=== PATIENT | female | born 1985 ===

== ENCOUNTER 2021-12-07 15:47 | Emergency (ER) | payer OTHER ==
--- NOTE | 2021-12-07 15:57 | EDM.PDOC ---
ED HPI GENERAL MEDICAL PROBLEM - General Stated Complaint: "SOB, CHECK PAIN, BODY PAIN" Time Seen by Provider: 12/07/21 15:57 Source of Information: Reports: Patient History Limitations: Reports: No Limitations - History of Present Illness INITIAL COMMENTS - FREE TEXT/NARRATIVE: HISTORY AND PHYSICAL: History of present illness: Patient is a 33-year-old female who presents to the emergency room with known COVID-19 whom has complaints of shortness of breath, cough, fever, headache, nausea, vomiting and diarrhea for the past 7-10 days. She was diagnosed with COVID-19 on 12/03/21. States her symptoms have not improved and she is concerned she may be dehydrated. She states she has generalized back pain and body aches. Patient denies any change in vision, syncope or near syncope. Denies any chest pain, abdominal pain, constipation or dysuria. Has not noted any blood in urine or stool. No concerns for . Patient has not been eating and drinking appropriately over the past 2 to 3 days. Her significant other whom has the same symptoms is also checked into the emergency room with COVID-19. Review of systems: As per history of present illness and below otherwise all systems reviewed and negative. Past medical history: As per history of present illness and as reviewed below otherwise noncontributory. Surgical history: As per history of present illness and as reviewed below otherwise noncontributory. Social history: See social history for further information Family history: As per history of present illness and as reviewed below otherwise noncontributory. Physical exam: General: Well developed and well nourished 36-year-old female. Alert and orientated x 3. Nontoxic in appearance and in no acute distress. Vital signs are stable and have been reviewed by me. Nursing notes were reviewed. HEENT: Atraumatic, normocephalic, pupils equal and reactive bilaterally, negative for conjunctival pallor or scleral icterus, mucous membranes dry, TMs normal bilaterally, throat clear, neck supple, nontender, trachea midline. No drooling or trismus noted. No meningeal signs. No hot potato voice noted. Lungs: Clear to auscultation bilaterally. No wheezes, rales, or rhonchi. Chest nontender. Normal work of breathing, no accessory muscles used. Dry nonproductive cough noted. Heart: S1S2, regular rate and rhythm without overt murmur, gallops, or rubs. No JVD. No peripheral edema Abdomen: Soft, nondistended, nontender. Normoactive bowel sounds. Negative for masses or costovertebral tenderness. Skin: Intact, warm, dry. No lesions or rashes noted. Hematologic: No petechiae or purpra. Mucosa appropriate color and normal nail bed color and refill. Extremities: Atraumatic, moves all extremities per self without difficulty or deficits, negative for cords or calf pain. Neurovascular unremarkable. Neuro: Awake, alert, oriented. Cranial nerves II through XII unremarkable. Cerebellum unremarkable. Motor and sensory unremarkable throughout. Exam nonfocal. Psychiatric: Mood and affect are appropriate. Normal thought process. Answering questions appropriately. Please note that the patient was seen and evaluated during the 2019 SARS-CoV-2 novel coronavirus pandemic period. Community viral transmission is ongoing at time of this encounter and the emergency department is operating under pandemic response procedures. Medical Decision Making: Patient is a 36-year-old female who presents to the emergency room with complaints of COVID-19 symptoms. Patient is tachycardic with a heart rate in the 110's, I will do basic lab work, chest x-ray and provide with IV fluids and medications. X-ray shows small subpleural ground-glass opacity in the lateral aspect of the mid right lung may be due to COVID pneumonia. Due to patient having symptoms nearly 10 days I am getting give her a Z-Luiz to cover in case this is bacterial with viral. She is feeling improved after the IV fluids and medication. Patient's chemistry does show mild dehydration and derangements. Vital signs are stable. I have talked with the patient about today's findings, in addition to providing specific details for plan of care. Reassessment at the time of disposition demonstrates that the patient is in no acute distress. The patient is stable for discharge, counseling was provided and we discussed in great detail signs and symptoms that would prompt them to return to the Emergency D epartment. Medication, follow up and supportive care measures were reviewed and discussed. Voices understanding and is agreeable to plan of care. Denies any further questions or concerns at this time. Diagnostics: CBC, CMP, chest x-ray Therapeutics: IV fluid, Zofran, Toradol Prescription: Z-Luiz, Phenergan with codeine Impression: COVID-19 positive test (U07.1, COVID-19) with Acute Pneumonia (J12.89, Other viral pneumonia) Dehydration Plan: 1. You were evaluated today on an emergent basis. Your chest x-ray shows groundglass opacity in the right middle lung which is likely due to COVID-p neumonia. Due to length of symptoms and getting give you a Z-Luiz, antibiotic treatment. Lab work is otherwise unremarkable. Your vital signs and oxygen saturation are well enough that you were able to monitor your symptoms at home. Continue to monitor for trouble breathing, new confusion or inability to arouse, bluish lips or face or any of the other symptoms we discussed -if this occurs please return to the emergency room immediately. 2. Please self quarantine until cleared by [facility] Department. Inform any persons that you have been in contact with since you started becoming symp tomatic that you have tested positive; they should be made aware and take the appropriate steps as needed. 3. You can take NyQuil during the evening to help get a restful night sleep. May alternate Tylenol and ibuprofen as needed for pain and fever management. 4. The [facility] department will be calling you and following up with you. The [facility] COVID 19 Hotline phone number , They are open Friday - Friday 7am - 7pm. Follow up with your primary care provider for re-evaluation as directed. Definitive disposition and diagnosis as appropriate pending reevaluation and review of above. Headache Pain Score (Numeric/FACES): 8 - Related Data Allergies Allergy/AdvReac Type Severity Reaction Status Date / Time Penicillins Allergy unknown Verified 12/07/21 16:09 Home Meds: Home Meds . [No Known Home Meds] 12/07/21 [History] ED ROS GENERAL - Review of Systems Review Of Systems: Comprehensive ROS is negative, except as noted in HPI. ED EXAM, GENERAL - Physical Exam Exam: See Below (See dictation) Course - Vital Signs Last Recorded V/S: Last Vital Signs Temp 97.8 F 12/07/21 16:05 Pulse 119 H 12/07/21 16:05 Resp 22 H 12/07/21 16:05 BP 118/77 12/07/21 16:05 Pulse Ox 93 L 12/07/21 16:05 - Orders/Labs/Meds Labs: Laboratory Tests 12/07/21 12/07/21 Range/Units 16:42 16:42 WBC 3.36 L (4.0-11.0) K/uL RBC 4.76 (4.30-5.90) M/uL Hgb 14.6 (12.0-16.0) g/dL Hct 42.5 (36.0-46.0) % MCV 89.3 (80.0-98.0) fL MCH 30.7 (27.0-32.0) pg MCHC 34.4 (31.0-37.0) g/dL RDW Std Deviation 42.4 (28.0-62.0) fl RDW Coeff of Jacob 13 (11.0-15.0) % Plt Count 164 (150-400) K/uL MPV 10.80 (7.40-12.00) fL Neut % (Auto) 56.6 (48.0-80.0) % Lymph % (Auto) 35.4 (16.0-40.0) % Addison % (Auto) 7.7 (0.0-15.0) % Eos % (Auto) 0.0 (0.0-7.0) % Baso % (Auto) 0.3 (0.0-1.5) % Neut # (Auto) 1.9 (1.4-5.7) K/uL Lymph # (Auto) 1.2 (0.6-2.4) K/uL Addison # (Auto) 0.3 (0.0-0.8) K/uL Eos # (Auto) 0.0 (0.0-0.7) K/uL Baso # (Auto) 0.0 (0.0-0.1) K/uL Nucleated RBC % 0.0 /100WBC Nucleated RBCs # 0 K/uL Sodium 136 (136-145) mmol/L Potassium 3.2 L (3.5-5.1) mmol/L Chloride 97 L (98-107) mmol/L Carbon Dioxide 22.5 (21.0-32.0) mmol/L BUN 7 (7.0-18.0) mg/dL Creatinine 0.8 (0.6-1.0) mg/dL Est Cr Clr Drug Dosing 90.13 mL/min Estimated GFR (MDRD) > 60.0 ml/min Glucose 93 (74-106) mg/dL Calcium 8.2 L (8.5-10.1) mg/dL Total Bilirubin 0.5 (0.2-1.0) mg/dL AST 57 H (15-37) IU/L ALT 283 H (14-63) IU/L Alkaline Phosphatase 146 H (46-116) U/L Total Protein 8.0 (6.4-8.2) g/dL Albumin 3.8 (3.4-5.0) g/dL Globulin 4.2 H (2.6-4.0) g/dL Albumin/Globulin Ratio 0.9 (0.9-1.6) Meds: Medications Discontinued Medications Generic Name Dose Route Start Last Admin Trade Name Kulwinderq PRN Reason Stop Dose Admin Sodium Chloride 1,000 mls @ 999 mls/hr 12/07/21 16:06 12/07/21 16:23 Normal Saline IV 12/07/21 17:06 999 mls/hr STAT ONE Administration Ketorolac Tromethamine 30 mg 12/07/21 16:07 12/07/21 16:25 Ketorolac 30 Mg/Ml Sdv IVPUSH 12/07/21 16:08 30 mg ONETIME ONE Administration Ondansetron HCl 4 mg 12/07/21 16:06 12/07/21 16:25 Ondansetron 4 Mg/2 Ml Sdv IVPUSH 12/07/21 16:07 4 mg ONETIME ONE Administration Departure - Departure Time of Disposition: 17:16 Disposition: Home, Self-Care 01 Clinical Impression: Pneumonia due to COVID-19 virus, Dehydration - Discharge Information Instructions: 10 Things You Can Do to Manage Your COVID-19 Symptoms at Home - [facility] (06/15/2021) Referrals: PCP,None [Primary Care Provider] - Additional Instructions: The following information is given to patients seen in the emergency department who are being discharged to home. This information is to outline your options for follow-up care. We provide all patients seen in our emergency department with a follow-up referral. The need for follow-up, as well as the timing and circumstances, are variable depending upon the specifics of your emergency department visit. If you don't have a primary care physician on staff, we will provide you with a referral. We always advise you to contact your personal physician following an emergency department visit to inform them of the circumstance of the visit and for follow-up with them and/or the need for any referrals to a consulting specialist. The emergency department will also refer you to a specialist when appropriate. This referral assures that you have the opportunity for follow-up care with a specialist. All of these measure are taken in an effort to provide you with optimal care, which includes your follow-up. Under all circumstances we always encourage you to contact your private physician who remains a resource for coordinating your care. When calling for follow-up care, please make the office aware that this follow-up is from your recent emergency room visit. If for any reason you are refused follow-up, please contact the [facility] Emergency Department at and asked to speak to the emergency department charge nurse. [facility] [address] [place] [address] [place] [address] Thank you for choosing the [facility] emergency department in [place] for your medical needs today. It was a pleasure caring for you. Today you were seen in the emergency department for COVID pneumonia. 1. You were evaluated today on an emergent basis. Your chest x-ray shows groundglass opacity in the right middle lung which is likely due to COVID- pneumonia. Due to length of symptoms and getting give you a Z-Luiz, antibiotic treatment. Lab work is otherwise unremarkable. Your vital signs and oxygen saturation are well enough that you were able to monitor your symptoms at home. Continue to monitor for trouble breathing, new confusion or inability to arouse, bluish lips or face or any of the other symptoms we discussed -if this occurs please return to the emergency room immediately. 2. Please self quarantine until cleared by [facility] Department. Inform any persons that you have been in contact with since you started becoming symptomatic that you have tested positive; they should be made aware and take the appropriate steps as needed. 3. You can take NyQuil during the evening to help get a restful night sleep. May alternate Tylenol and ibuprofen as needed for pain and fever management. 4. The [facility] department will be calling you and following up with you. The [facility] BEN 19 Hotline phone number , They are open Friday - Friday 7am - 7pm. Follow up with your primary care provider for re-evaluation as directed. Sepsis Event Note (ED) - Focused Exam Vital Signs: Vital Signs Temp Pulse Resp BP Pulse Ox 12/07/21 16:05 97.8 F 119 H 22 H 118/77 93 L
[2021-12-07] MEDS ORDERED: Ondansetron 4 MG/2 ML SDV IVPUSH ONE (16:06)
[2021-12-07] MEDS ORDERED: Sodium Chloride 0.9% 1,000 ML IV ONE (16:06)
[2021-12-07] MEDS ORDERED: Ketorolac 30 MG/ML SDV IVPUSH ONE (16:07)
--- NOTE | 2021-12-07 17:01 | CR ---
INDICATION: COVID positive. FINDINGS: A single portable chest x-ray shows a normal cardiac silhouette. The lungs show a small subpleural ground-glass opacity in the lateral aspect of the mid right lung. No other focal pulmonary opacities. Sharp pleural margins. No pneumothorax. IMPRESSION: 1. Small subpleural ground-glass opacity in the lateral aspect of the mid right lung may be due to COVID pneumonia. Dictated by Tevin Salomon MD @ 12/07/2021 5:00:16 PM (Electronically Signed)
[2021-12-07 17:22] LABS: BLOOD UREA NITROGEN,BUN 7 mg/dL (7.0-18.0); CARBON DIOXIDE,CO2 22.5 mmol/L (21.0-32.0); CHLORIDE,CL 97 mmol/L (98-107); GLUCOSE RANDOM 93 mg/dL (74-106); POTASSIUM,K 3.2 mmol/L (3.5-5.1); SODIUM,NA 136 mmol/L (136-145)
== END 2021-12-07 17:51 | disposition home or self-care (01) ==
LOC: MW.ED 15:47
DX: U07.1 COVID-19 (principal); J12.82 Pneumonia due to coronavirus disease 2019; E86.0 Dehydration; Z88.0 Allergy status to penicillin
CPT/HCPCS: 36415; 71045; 80053; 85025; 96374; 96375; 99285; J1885; J2405; J7030

== ENCOUNTER 2021-12-13 12:47 | Observation (INO) | payer OTHER ==
[2021-12-13 13:52] LABS: BLOOD UREA NITROGEN,BUN 5 mg/dL (7.0-18.0); CARBON DIOXIDE,CO2 26.6 mmol/L (21.0-32.0); CHLORIDE,CL 96 mmol/L (98-107); GLUCOSE RANDOM 99 mg/dL (74-106); POTASSIUM,K 2.8 mmol/L (3.5-5.1); SODIUM,NA 136 mmol/L (136-145)
[2021-12-13] MEDS ORDERED: Potassium Chloride 20 MEQ Tab.ER PO ONE ×2 (14:54→19:06)
[2021-12-13] MEDS ORDERED: Iopamidol 755 MG/ML 500 ML Multipack Bottle IVPUSH STA (15:35)
[2021-12-13] MEDS ORDERED: Aspirin 81 MG Tab.Chew PO ONE (16:58)
[2021-12-13] MEDS ORDERED: Albuterol 8 GM Inhaler INH ONE (16:59)
[2021-12-13] MEDS ORDERED: Potassium Chloride Riders 20 MEQ in Premix Bag 1 BAG IV ONE (17:01)
[2021-12-13] MEDS ORDERED: Ondansetron 4 MG Tab.DIS PO PRN (18:38)
[2021-12-13] MEDS ORDERED: Acetaminophen 325 MG Tab PO PRN (18:38)
[2021-12-13] MEDS ORDERED: Albuterol/Ipratropium 3.0-0.5 MG/3 ML Neb Soln NEB PRN (18:38)
[2021-12-13] MEDS ORDERED: Benzonatate 100 MG Cap PO PRN (18:44)
[2021-12-13] MEDS ORDERED: Enoxaparin 40 MG/0.4 ML Syringe SUBCUT SCH (18:45)
[2021-12-13] MEDS ORDERED: Potassium Chloride 10 MEQ Tab.ER PO ONE (19:07)
[2021-12-13] MEDS: Dexamethasone 4 MG Tab PO SCH (19:46)
[2021-12-13] MEDS: guaiFENesin/Dextromethorphan 100-10 MG/5 ML Soln 10 ML Cup PO PRN (20:23)
[2021-12-13] MEDS: Albuterol/Ipratropium 4 GM Inhalation Spray INH PRN (20:25)
[2021-12-14 07:18] LABS: BLOOD UREA NITROGEN,BUN 6 mg/dL (7.0-18.0); CARBON DIOXIDE,CO2 21.8 mmol/L (21.0-32.0); CHLORIDE,CL 104 mmol/L (98-107); GLUCOSE RANDOM 140 mg/dL (74-106); POTASSIUM,K 4.2 mmol/L (3.5-5.1); SODIUM,NA 138 mmol/L (136-145)
[2021-12-14] MEDS: Albuterol/Ipratropium 4 GM Inhalation Spray INH PRN (09:51)
[2021-12-14] MEDS: Dexamethasone 4 MG Tab PO SCH (09:51)
[2021-12-14] MEDS: guaiFENesin/Dextromethorphan 100-10 MG/5 ML Soln 10 ML Cup PO PRN (09:51)
[2021-12-14] MEDS ORDERED: Albuterol/Ipratropium 4 GM Inhalation Spray INH SCH (11:30)
[2021-12-14] MEDS ORDERED: Magnesium Sulfate/Water 2 GM in Premix Bag 1 BAG IV ONE (11:35)
== END 2021-12-14 14:40 | disposition home or self-care (01) ==
LOC: MW.ED 12:47 → MW.MS 17:08
PROVIDERS: ADMIT Student in an Organized Health Care Education/Training Program; ATTEND Student in an Organized Health Care Education/Training Program
DX: U07.1 COVID-19 (principal); J12.82 Pneumonia due to coronavirus disease 2019; R07.9 Chest pain, unspecified; E87.6 Hypokalemia; R06.02 Shortness of breath; Z88.0 Allergy status to penicillin; Z79.899 Other long term (current) drug therapy
CPT/HCPCS: 36415; 71275; 74177; 80053; 83690; 83735; 84100; 84484; 84702; 85025; 85027; 85610; 93005; 96365; 99285; A9270; J1650; J3480; J8540; Q9967; 96372; G0378

== ENCOUNTER 2023-08-25 08:13 | Emergency (ER) | payer SELFPAY ==
[2023-08-25] MEDS ORDERED: diphenhydrAMINE 50 MG/ML SDV IVPUSH ONE (08:26)
[2023-08-25] MEDS ORDERED: Sodium Chloride 0.9% 1,000 ML IV ONE (08:26)
[2023-08-25] MEDS ORDERED: Ondansetron 4 MG/2 ML SDV IVPUSH ONE (08:26)
[2023-08-25] MEDS ORDERED: Ketorolac 30 MG/ML SDV IVPUSH ONE (08:26)
[2023-08-25] MEDS ORDERED: Metoclopramide 10 MG/2 ML SDV IVPUSH ONE (08:26)
[2023-08-25 08:54] LABS: HEMATOCRIT 44.1 % (36.0-46.0); HEMOGLOBIN 15.1 g/dL (12.0-16.0); LYMPHOCYTES ABSOLUTE AUTO 1.3 K/uL (0.6-2.4); LYMPHOCYTES PERCENT AUTO 24.2 % (16.0-40.0); MEAN CORPUSCULAR HEMOGLOBIN 30.8 pg (27.0-32.0); MEAN CORPUSCULAR HGB CONC 34.2 g/dL (31.0-37.0); MONOCYTES ABSOLUTE AUTO 0.6 K/uL (0.0-0.8); MONOCYTES PERCENT AUTO 11.3 % (0.0-15.0); NEUTROPHILS ABSOLUTE AUTO 3.6 K/uL (1.4-5.7); NEUTROPHILS PERCENT AUTO 64.5 % (48.0-80.0); NRBC ABSOLUTE 0 K/uL; PLATELET COUNT,PLT 246 K/uL (150-400)
[2023-08-25 09:18] LABS: A/G RATIO 0.9 (0.9-1.6); BILIRUBIN TOTAL 0.4 mg/dL (0.2-1.0); CALCIUM 8.7 mg/dL (8.5-10.1); CARBON DIOXIDE,CO2 23.4 mmol/L (21.0-32.0); CREATININE 0.9 mg/dL (0.6-1.0); EST CRCL DRUG DOSING (CG) 75.52 mL/min; MAGNESIUM 2.1 mg/dL (1.8-2.4); POTASSIUM,K 3.3 mmol/L (3.5-5.1); PROTEIN TOTAL,TP 8.3 g/dL (6.4-8.2); TSH ULTRASENSITIVE 0.66 uIU/mL (0.36-3.74)
[2023-08-25 09:23] LABS: CORONAVIRUS COVID-19 NAA POSITIVE (NEGATIVE); INFLUENZA A NAA NEGATIVE (NEGATIVE); INFLUENZA B NAA NEGATIVE (NEGATIVE)
== END 2023-08-25 10:01 | disposition home or self-care (01) ==
LOC: MW.ED 08:13
DX: U07.1 COVID-19 (principal); G43.909 Migraine, unspecified, not intractable, without status migrainosus; Z88.0 Allergy status to penicillin; Z86.16 Personal history of COVID-19
CPT/HCPCS: 0240U; 36415; 70450; 80053; 83735; 84443; 84484; 85025; 93005; 96361; 96374; 96375; 99284; J1200; J1885; J2405; J2765; J7030; 93010